=== PATIENT | female | born 1960 | race Caucasian/White ===

== ENCOUNTER 2024-09-01 12:10 | Outpatient (CLI) | payer BC, SELFPAY ==
[2024-09-01 12:20] VITALS: BP 139/75; PULSE 69; RESP 20; TEMP 36.6; O2SAT 99
[2024-09-01 13:02] VITALS: O2SAT 100
[2024-09-01 13:10] VITALS: O2SAT 100
--- NOTE | 2024-09-01 13:13 | DI.RAD_ITS ---
Exam(s) XR PAIN CLINIC FLUORO JOINT IN EXAM: XR PAIN CLINIC FLUORO JOINT IN CLINICAL HISTORY: Dx: Right Hip Bursitis. TECHNIQUE: Fluoroscopy was provided for the referring physician for guidance with performing pain cl inic injection procedure. COMPARISON: No exams were available for comparison FINDINGS: Please see procedure note for details. Fluoro time: 22.2 seconds RADIATION DOSE DELIVERED: cecilia Rinaldi=2.4 mGy
--- NOTE | 2024-09-01 13:13 | PDOC.PAIN ---
Date of service: 09/01/24 Time of Service: 13:20 Pain Managment Procedure Note Procedure Note Procedure Note: Greater Trochanteric Bursa Injection of Steroid ? Location: Right Greater Trochanteric Bursa ? Pre-procedure Diagnosis: M25.551 Pain in right hip ? Post-procedure Diagnosis:? The same as above ? Sedation: none ? Estimated blood loss:? less than 2 cc ? Surgeon:? Quincy Tellez MD ? Procedure Detail:? The procedure and potential risks were explained to the patient and informed written consent was obtained. The patient was escorted to the procedure room and placed in the supine position. Pillows were utilized for proper positioning and comfort.? Time out was performed in the procedure room with nursing staff confirming the patient's identity, procedure to be performed, allergies, and any blood thinning or anti-platelet medications. The skin overlying the right lateral hip was prepped with ChloraPrep. Sterile gloves were used, a face mask was worn, and new single dose vials of all medications were used with the top being swabbed with alcohol and given time to dry prior to withdrawal of medication. Under fluoroscopic AP projection, the greater trochanter was visualized.? 1% lidocaine was used to anesthetize the skin. A 22 gauge needle was advanced toward the greater trochanteric bursa. After reaching the greater trochanter,0.5ml Omnipaque injected confirming position.?? A mixture consisting of 4cc of 0.5% bupivacaine and 40mg of methylprednisolone was injected into the bursa. The needle was gently removed. ? The patient tolerated the procedure well, and was transported to the recovery area for observation and discharge instructions. Permanent images saved and recorded. PAIN: PRE-PROCEDURE 02/27 POST-PROCEDURE 11/30 Plan:? Follow up prn COMMENT:
[2024-09-01] MEDS: Bupivacaine 0.5% Pres-Free 10 ML VIAL IJ (13:14)
[2024-09-01] MEDS: Omnipaque 240 MG/ML 50 ML BTL IJ (13:14)
[2024-09-01] MEDS: Nerve Block Tray 1 EACH MC (13:15)
[2024-09-01] MEDS: methylPREDNISolone ACETATE 40 MG/ML VIAL IJ (13:15)
== END 2024-09-01 12:11 | disposition home or self-care (01) ==
LOC: PC 12:10
PROVIDERS: PCP Family Medicine; Visit Provider Anesthesiology Pain Medicine
DX: M70.61 Trochanteric bursitis, right hip (principal)
CPT/HCPCS: 00123; 20610; 77002; J0665; J1010; Q9967

== ENCOUNTER 2024-11-03 12:49 | Outpatient (CLI) | payer BC, SELFPAY ==
--- NOTE | 2024-11-03 06:00 | DI.RAD_ITS ---
Exam(s) XR PAIN CLINIC LUMBAR SP 2V EXAM: XR PAIN CLINIC LUMBAR SP 2V CLINICAL HISTORY: Dx: Lumbar Radiculopathy TECHNIQUE: 2D and realtime digital imaging was performed. CONTRAST MATERIAL: Refer to procedure report. COMPARISON: No exams were available for comparison FINDINGS: Fluoroscopy was provided for Dr. Tellez during the performance of a transforaminal epidural steroid injection. Please refer to the procedure report for complete details. Ka,r=12.4 mGy IMPRESSION: RADIATION DOSE DELIVERED: 0.0 0.0 0
[2024-11-03 13:10] VITALS: BP 122/63; PULSE 75; RESP 20; TEMP 36.6; O2SAT 97
--- NOTE | 2024-11-03 13:17 | PDOC.PAIN ---
Date of service: 11/03/24 Time of Service: 13:45 Pain Managment Procedure Note Procedure Note Procedure Note: Lumbar Transforaminal Epidural Steroid Injection ? Location: RIGHT L4-5 ? Pre-procedure Diagnosis: M54.17-Radiculopathy, lumbosacral region M54.16 Radiculopathy, lumbar region ? Post-procedure Diagnosis:? The same as above ? Sedation:? none ? Estimated blood loss:? less than 2 cc ? Surgeon:? Quincy Tellez MD COMMENT: pt has RLE to her and foraminal narrowing at L4-5 on the right ? Procedure Detail:?? The procedure and potential risks were explained to the patient and informed written consent was obtained. The patient was escorted to the procedure room and placed in the prone position. Pillows were utilized for proper positioning and comfort. Time out was performed in the procedure room with nursing staff confirming the patient's identity, procedure to be performed, allergies, and any blood thinning or anti-platelet medications. The patient's lower back was prepped with ChloraPrep and draped in a sterile fashion. Sterile gloves were used, a face mask was worn, and new single dose vials of all medications were used with the top being swabbed with alcohol and given time to dry prior to withdrawal of medication. A right-sided oblique fluoroscopic view was obtained, with visualization of L4-5. Lidocaine 1% was used to anesthetize the skin. The tip of a 22-gauge, Quincke needle was advanced toward the 6 o'clock position of the superior pedicle at the target level.? It was advanced just under the pedicle to the neural foramen L4-5. Correct needle placement was confirmed through review of the fluoroscopy. Next, following negative aspiration, 1cc's of Omnipaque 240 contrast was injected under live fluoroscopy which showed good flow throughout the epidural space and no evidence of vascular flow or flow into adjacent compartments. Next, following negative aspiration, 15mg of preservative-free dexamethasone and 0.5ml of 0.5% bupivacaine was injected. The needle was gently removed.? ? The patient tolerated the procedure well.? Permanent images saved and recorded. Plan:? Follow up prn PAIN: PRE PROCEDURE 05/30 POST PROCEDURE 04/29 COMMENT: Consider repeat with depo-medrol
[2024-11-03 13:38] VITALS: O2SAT 100
[2024-11-03 13:40] VITALS: O2SAT 100
[2024-11-03] MEDS: Dexamethasone Sod. Phos./Pres-Free 10 MG/ML VIAL IJ (13:46)
[2024-11-03] MEDS: Omnipaque 240 MG/ML 50 ML BTL IJ (13:46)
[2024-11-03] MEDS: Bupivacaine 0.5% Pres-Free 10 ML VIAL IJ (13:47)
[2024-11-03] MEDS: Nerve Block Tray 1 EACH MC (13:47)
== END 2024-11-03 12:50 | disposition home or self-care (01) ==
LOC: PC 12:50
PROVIDERS: PCP Family Medicine; Visit Provider Anesthesiology Pain Medicine
DX: M54.17 Radiculopathy, lumbosacral region (principal); M54.16 Radiculopathy, lumbar region
CPT/HCPCS: 00123; 64483; 72100; J0665; J1100; Q9967